=== PATIENT | female | born 1960 | race Native Hawaiian/Other Pacific Islander ===

== ENCOUNTER 2019-10-04 08:42 | Outpatient (CLI) | payer BC | END 2019-10-04 19:26 | disposition home or self-care (01) | LOC: MAMMO 08:42 | DX: Z12.31 Encounter for screening mammogram for malignant neoplasm of breast (principal) ==

== ENCOUNTER 2023-08-31 16:43 | Outpatient (CLI) | payer BC | END 2023-08-31 19:34 | disposition home or self-care (01) | LOC: RAD 16:43 | PROVIDERS: ATTEND Nurse Practitioner Family | DX: R05.9 Cough, unspecified (principal) ==